=== PATIENT | female | born 1970 | race Caucasian/White ===

== ENCOUNTER → 2017-01-17 | Outpatient (CLI) | payer BC ==
--- NOTE | 2017-01-17 16:28 | DIAGNOSTIC IMAGING REPORT ---
ADDENDUM At the request of the patient/referring physician, specific calcification dimensions are as noted. 1. Right kidney. 2 calcifications are present largest of which measures 3 mm lower pole. 2. Left kidney: Several calcifications are present with the largest calcification measuring 4 mm at the lower and upper pole. Electronically signed by: Ryan Galvez M.D. 01/19/2017 8:48 AM Dictated Date/Time: 01/19/2017 8:47 AM ORIGINAL REPORT ABDOMEN AND PELVIS CT WITHOUT CONTRAST CT DOSE: 299.50 mGy.cm HISTORY: Flank pain HX OF URINARY CALCULI, R FLANK PAIN TECHNIQUE: Multiaxial CT images of the abdomen and pelvis were performed without the use of intravenous and oral contrast according to the standard department stone protocol. COMPARISON STUDY: None. FINDINGS: Kidneys demonstrate nonobstructing renal calcifications bilaterally. There is a soft tissue mass measuring 5 x 4 cm involving the inferior medial right hepatic lobe versus adnexa phytic process from the right kidney. This is soft tissue density. Gallbladder is somewhat contracted. Alternatively, this potentially represents a lesion originating from the hepatic flexure of the colon. A distended atypical gallbladder is also a possibility. Bowel pattern is considered nonobstructive. The appendix is normal. There is no significant abdominal pelvic or inguinal adenopathy. An intrauterine device is present. IMPRESSION: 1. Nonobstructing renal calcifications bilaterally. 2. Nonobstructive bowel pattern. 3. 5 x 4 cm soft tissue mass originating from the liver, kidney, or less likely on exophytic bases from the hepatic flexure of the colon. 4. A multi phase evaluation of the liver is possible as follow-up, although with the patient's history of renal calculi prior studies potentially are available at outside institution. This should be investigated first before further imaging is attempted Electronically signed by: Ryan Galvez M.D. 01/17/2017 4:26 PM Dictated Date/Time: 01/17/2017 4:20 PM
== END | disposition home or self-care (01) ==
LOC: MERGE 16:08 → C.CTS 16:08
PROVIDERS: ATTEND Nurse Practitioner Family
DX: Z87.442 Personal history of urinary calculi (principal); R10.9 Unspecified abdominal pain; N20.0 Calculus of kidney; R93.5 Abnormal findings on diagnostic imaging of other abdominal regions, including retroperitoneum

== ENCOUNTER → 2017-08-22 | Outpatient (CLI) | payer OTHER ==
--- NOTE | 2017-08-22 12:18 | DIAGNOSTIC IMAGING REPORT ---
R ELBOW MIN 3 VIEWS ROUTINE CLINICAL HISTORY: Right elbow pain status post trauma COMPARISON: None DISCUSSION: There is subtle displacement of the fat pads. No fractures are visualized. In the setting of trauma, this may indicate an occult fracture. IMPRESSION: 1. No acute fractures are visualized 2. Joint effusion. In the setting of trauma, this may indicate an occult fracture. Follow-up radiography should be considered. Electronically signed by: Donnell Rosa M.D. 08/22/2017 12:17 PM Dictated Date/Time: 08/22/2017 12:15 PM
--- NOTE | 2017-08-22 12:22 | DIAGNOSTIC IMAGING REPORT ---
R WRIST MIN 3 VIEWS ROUTINE CLINICAL HISTORY: Right wrist pain status post trauma COMPARISON: None. DISCUSSION: No fractures or dislocations are visualized. IMPRESSION: No fractures or dislocations identified. Electronically signed by: Donnell Rosa M.D. 08/22/2017 12:20 PM Dictated Date/Time: 08/22/2017 12:19 PM
== END | disposition home or self-care (01) ==
LOC: C.RAD1850 12:00
PROVIDERS: ATTEND Family Medicine
DX: S59.909A Unspecified injury of unspecified elbow, initial encounter (principal); M25.531 Pain in right wrist; W00.9XXA Unspecified fall due to ice and snow, initial encounter